=== PATIENT | female | born 1965 | race Caucasian/White ===

== ENCOUNTER 2022-12-04 01:37 | Day surgery (SDC) | payer BC, SELFPAY ==
[2022-11-20 09:33] VITALS: BMI 22.5
--- NOTE | 2022-12-02 16:16 | PM.HPGS ---
History of Present Illness History of Present Illness Consent: Risks, benefits, and alternatives have been discussed and questions answered. Patient agrees to proceed with procedure. Chief complaint: family hx colon ca Narrative: Maryjo King is a 57 year old female referred for colon cancer screening. Review of Systems Review of Systems: All systems reviewed & are unremarkable except as noted in HPI and below PMFSH Social History Social History Smoking status: Never smoker Alcohol intake: never Substance use: never Substance use type: does not use Living arrangements: with family Spiritual care concerns: No Meds Home Medications and Allergies Home Medications Medication Instructions Recorded Confirmed Type fluorouracil 5 % topical cream 1 applic topical DAILY 11/20/22 12/04/22 History Allergies Allergy/AdvReac Type Severity Reaction Status Date / Time amoxicillin Allergy Mild Rash Verified 12/04/22 08:18 clarithromycin [From Biaxin] Allergy Rash Verified 12/04/22 08:18 Exam Const: General: alert Orientation/consciousness: patient oriented x3 Resp: Auscultation: clear to auscultation bilaterally Cardio: Rhythm: regular rhythm GI: GI Palp: Yes Soft to palpation and No Tenderness to palpation present (GI) Neuro: General: patient oriented x3 Assessment and Plan Assessment and plan (1) Colon cancer screening: Code(s): Z12.11 - Encounter for screening for malignant neoplasm of colon Status: Acute Assessment and Plan: Colonoscopy with possible biopsy or polypectomy or cautery or injection of substances.
[2022-12-04 08:12] VITALS: BP 108/72; PULSE 71; RESP 18; TEMP 36.6; O2SAT 100; BMI 22.0
[2022-12-04] MEDS: LACTATED RINGERS 1,000 ML 150 ML IV CONT (08:30)
--- NOTE | 2022-12-04 09:18 | WPDANESEPPF ---
Anes - Initial Pre Proc Eval Procedure: Operation Date: 12/04/22 09:30 Proposed Procedures p Screening Colonoscopy - Henrique Wells MD Date/Time: 12/04/22 09:18 Surgeon: Henrique Wells MD Pre Op Diagnosis: family hx colon ca Patient Data Age: 57 Gender: F Height: 1.65 m Weight: 60.1 kg Last Vital Signs Temp 97.8 F 12/04/22 08:12 Pulse 71 12/04/22 08:12 Resp 18 12/04/22 08:12 BP 108/72 12/04/22 08:12 Pulse Ox 100 12/04/22 08:12 O2 Del Method Room Air 12/04/22 08:12 Allergies Allergy/AdvReac Type Severity Reaction Status Date / Time amoxicillin Allergy Mild Rash Verified 12/04/22 08:18 clarithromycin [From Biaxin] Allergy Rash Verified 12/04/22 08:18 Home Medications Medication Instructions Recorded Confirmed Type fluorouracil 5 % topical cream 1 applic topical DAILY 11/20/22 12/04/22 History Patient hx anesthesia problems: none Family hx anesthesia problems: none Results Review: All pre-operative results and documents have been reviewed as part of the pre-operative evaluation. [facility] [place] Social History Social History Smoking status: Never smoker Alcohol intake: never Substance use: never Substance use type: does not use Living arrangements: with family Spiritual care concerns: No Anes - Eval Final PreProcedure Day of Procedure 12/04/22 09:18 Patient weight: normal Heart: regular rate and rhythm Lungs: clear to auscultation Airway: Mallampati scale class II Neurological: alert and oriented Last oral intake: >/= 8 hours ASA classification: I Emergent: no Anesthetic plan: proceed Anesthesia type and monitoring: general GIVS and standard monitoring Results Review: All pre-operative results and documents have been reviewed as part of the pre-operative evaluation. Informed Consent: The patient's anesthetic plan and its attendant risks and benefits were discussed with the patient/family/POA. Questions were solicited and answers provided to the satisfaction of the patient/family/POA.
[2022-12-04 09:40] VITALS: BP 97/54; PULSE 59; RESP 17; O2SAT 96
[2022-12-04 09:50] VITALS: BP 96/56; PULSE 58; RESP 17; O2SAT 100
[2022-12-04 10:00] VITALS: BP 111/66; PULSE 80; RESP 20; O2SAT 100
--- NOTE | 2022-12-04 10:07 | SUR.PHASEII ---
When patient started waking up from her sedation, her eyes began to water and her eyes began to burn. Patient did have eye make up on that was running, saline was offered to her to try to rinse out the make up that looked to be in her eyes and patient did refuse and stated she would be okay.
== END 2022-12-04 10:16 | disposition home or self-care (01) ==
PROVIDERS: PCP Nurse Practitioner Family; Visit Provider Internal Medicine Gastroenterology
PROC: 0DJD8ZZ Inspection of Lower Intestinal Tract, Via Natural or Artificial Opening Endoscopic (ICD-10-PCS; CPT 45378; principal; 2022-12-04 09:30)
DX: Z12.11 Encounter for screening for malignant neoplasm of colon (principal); D12.3 Benign neoplasm of transverse colon
CPT/HCPCS: 45380; 88305; J2704; J7120